=== PATIENT | male | born 1990 | race Caucasian/White ===

== ENCOUNTER 2020-12-26 17:53 | Emergency (ER) | payer BC, OTHER ==
--- NOTE | 2020-12-26 18:30 | EDM.PDOC ---
ED HPI GENERAL MEDICAL PROBLEM - General Chief Complaint: Laceration Stated Complaint: CUT LEFT MIDDLE FINGER Time Seen by Provider: 12/26/20 18:15 Source of Information: Reports: Patient History Limitations: Reports: No Limitations - History of Present Illness INITIAL COMMENTS - FREE TEXT/NARRATIVE: The patient decided he was going to go to urgent care instead. He left before being seen. ED ROS GENERAL - Review of Systems Review Of Systems: Unable To Obtain Reason Not Obtained: Patient left without being seen ED EXAM, SKIN/RASH Exam: Not Obtained Reason Not Obtained: Patient left without being seen Course - Vital Signs Last Recorded V/S: Last Vital Signs Temp 36.4 C 12/26/20 18:07 Pulse 66 12/26/20 18:07 Resp 16 12/26/20 18:07 BP 123/83 12/26/20 18:07 Pulse Ox 99 12/26/20 18:07 Departure - Departure Time of Disposition: 18:30 Disposition: Left Without Being Seen 07 Clinical Impression: Laceration of finger of left hand Qualifiers: Encounter type: initial encounter Finger: ring finger Damage to nail status: without damage Foreign body presence: without foreign body Qualified Code(s): S61.215A - Laceration without foreign body of left ring finger without damage to nail, initial encounter - Discharge Information Referrals: María Pina MD [Primary Care Provider] - Forms: ED Department Discharge Sepsis Event Note (ED) - Focused Exam Vital Signs: Vital Signs Temp Pulse Resp BP Pulse Ox 12/26/20 18:07 36.4 C 66 16 123/83 99
== END 2020-12-26 18:29 | disposition left against medical advice (07) ==
LOC: JP.ED 17:53
DX: S61.215A Laceration without foreign body of left ring finger without damage to nail, initial encounter (principal); Z53.21 Procedure and treatment not carried out due to patient leaving prior to being seen by health care provider